=== PATIENT | female | born 1945 | race Caucasian/White ===

== ENCOUNTER 2024-08-18 09:53 | Emergency (ER) | payer MEDICARE, SELFPAY ==
[2024-08-18] VITALS (7 sets, daily range): BP systolic 150–174; BP diastolic 61–111
[2024-08-18 10:36] LABS: % Basophils 0.4 % (0-2); % Eosinophils 1.4 % (0-6); % Immature Granulocytes 0.3 % (0-0.5); % Lymphocytes 24.9 % (20.5-51.1); % Monocytes 5.7 % (1.7-9.3); % Neutrophils 67.3 % (42.2-75.2); Absolute Eosinophils 0.1 10^3/uL (0-0.7); Absolute Lymphocytes 2.5 10^3/uL (1.2-3.4); Absolute Monocytes 0.6 10^3/uL (0.1-0.6); Absolute Neutrophils 6.8 10^3/uL (1.4-6.5); Hematocrit 36.4 % (37.0-47.0); Hemoglobin 12.4 g/dL (12.0-16.0); Mean Corp Hgb Conc. 34.1 g/dL (33.0-37.0); Mean Corpuscular Hgb 30.8 pg (27.0-31.0); Mean Corpuscular Volume 90.5 fL (81.0-99.0); Mean Platelet Volume 9.9 fL (7.4-10.4); Nucleated Red Blood Cells % 0 %; Platelet Count 296 10^3/uL (130-400); Red Blood Cell Count 4.02 10^6/uL (4.20-5.40); Red Cell Dist. Width 13.1 % (11.5-14.5); White Blood Cell Count 10.1 10^3/uL (4.8-10.8)
[2024-08-18 10:38] LABS: Urine Albumin Trace (Neg - Trace); Urine Bilirubin Negative (Negative); Urine Character Very Cloudy (Clear); Urine Color Yellow; Urine Glucose Negative (Negative); Urine Ketone Negative (Negative); Urine Leukocyte 2+ (Negative); Urine Nitrite Negative (Negative); Urine Occult Blood Trace (Negative); Urine Specific Gravity 1.015 (<1.030); Urine Urobilinogen Negative (Neg - 1+)
[2024-08-18 10:47] LABS: ALT (SGPT) 15 U/L (0-35); AST (SGOT) 22 U/L (14-36); Albumin 4.2 g/dl (3.5-5.0); Alkaline Phosphatase 77 U/L (38-126); Blood Urea Nitrogen 18 mg/dl (7-17); Calcium 9.3 mg/dl (8.4-10.2); Carbon Dioxide 24 mmol/L (22-30); Chloride 105 mmol/L (98-107); Glucose 90 mg/dl (70-99); Lipase 60 U/L (23-300); Potassium 4.9 mmol/L (3.5-5.1); Sodium 138 mmol/L (135-145); Total Bilirubin 0.4 mg/dl (0.2-1.3); Total Protein 6.7 g/dl (6.3-8.2); eGFR 51.75
[2024-08-18 11:12] LABS: Urine Squamous Cell >30 /LPF (Few)
[2024-08-18 11:15] LABS: Urine Amorphous Seen; Urine Bacteria Many (Negative); Urine Red Blood Cell 0-2 /HPF (0-2); Urine White Cell 40-50 /HPF (0-5)
[2024-08-18 12:48] LABS: Glucose - Point of Care 64 mg/dl (70-99)
[2024-08-18] MEDS: D5/0.45%NACL 500 IV (13:07)
--- NOTE | 2024-08-18 13:11 | ED.GENMED ---
History of Present Illness
General
Chief Complaint: Abdominal Pain
Source: patient
Exam Limitations: none
Time Seen by Provider: 08/18/24 12:16
Nursing documentation reviewed up to this point in time: agreed with
History of Present Illness
History of Present Illness:
79-year-old female with a past medical history of hypertension, hyperlipidemia, diabetes who presents to the emergency department for evaluation of abdominal/back pain. Patient reports initially symptoms started about 10 to 12 days ago and they
have been constant although intensity waxing and waning since then. She reports pain in the right flank/low back. She says that over the past day or 2 symptoms have migrated she now has pain in the right lower abdomen as well. She denies any
nausea, vomiting, constipation, diarrhea. She denies any numbness or weakness in the legs, bowel or bladder incontinence, saddle anesthesia. She has not had any dysuria, hematuria, change in frequency. She has not had any fevers or chills. She
has not had any similar symptoms in the past. She denies any falls or trauma.
Review of Systems
Review of Systems
All Other Systems: ROS reviewed and negative except as documented in HPI and ROS
Constitutional: Denies fever or chills
Respiratory: Denies trouble breathing
Cardiac: Denies chest pain
ABD/GI: Reports abdominal pain; Denies nausea, vomiting, diarrhea or constipated
: Reports flank pain; Denies dysuria, frequency or bleeding
Musculoskeletal: Reports back pain; Denies neck pain
Neurological: Denies dizzy, headache, weakness or numbness
Phy Exam
Physical Exam
Physical Exam:
General: Awake, alert, oriented x3; no acute distress
Head: Normocephalic, atraumatic
Eyes: Conjunctiva normal, sclera anicteric
Throat: Airway intact, handling secretions
Neck: Trachea midline
Lungs: Clear to auscultation bilaterally, no wheezing, rales, rhonchi
Heart: Regular rate and rhythm, no murmurs, gallops, or rubs appreciated
Abd: Soft, non distended, mildly tender right upper and lower abdomen with no peritoneal signs or masses appreciated
Back: Mildly tender upper lumbar right paraspinal region; no CVA tenderness; negative straight leg raise bilaterally
Neuro: Cranial nerves grossly intact, speech fluid, motor and sensory intact lower extremities
Skin: no rash
Extremities: Warm and well-perfused
Scores
Heart Failure Risk
Heart Failure Risk Score: Not Applicable
Heart Score for Chest Pain Patients
STEMI patient?: Not applicable
Withdrawal Assessment of Alcohol
Withdrawal Assessment Completed?: Not applicable
Course
Orders/Labs/Results
Orders:
Orders
08/18/24 10:25
Complete Blood Count/With Diff Urgent
Comprehensive Metabolic Panel Urgent
Lipase Urgent
Urinalysis Reflex To Culture Urgent
Date Specimen was Collected: 08/18/24
Time Specimen was Collected: 10:04
Urine Microscopic Reflex Cult Urgent
Urine Culture Urgent
NIMISHA Source: U
Specimen Description:
Date Specimen was Collected: 08/18/24
Time Specimen was Collected: 10:04
08/18/24 12:19
CT Abd/pelvis W Iv Cont Urgent
Comment:
Reason For Exam: right flank/abd pain
08/18/24 12:43
Bedside Glucose- Treatment ONCE
08/18/24 13:00
Dextrose 5%/0.45%Sodchl 500 ml [D5/0.45%NaCl] 500 ml IV 40 mls/hr
08/18/24 15:51
Amoxicillin 875 mg/Clav 125 mg [Augmentin 875 mg/125 mg] 1 tablet PO NOW STA
08/18/24 15:58
Ketorolac [Toradol] 15 mg IV NOW STA
Oxycodone [Roxicodone] 5 mg PO NOW STA
Abnormal Lab Results
08/18/24 08/18/24
10:25 12:47
RBC 4.02 L 10^6/uL
(4.20-5.40)
Hct 36.4 L %
(37.0-47.0)
Absolute Neuts (auto) 6.8 H 10^3/uL
(1.4-6.5)
BUN 18 H mg/dl
(7-17)
Creatinine 1.1 H mg/dL
(0.6-1.0)
Ur Occult Blood Reflex Trace A
(Negative)
Leukocyte Esterase Rfl 2+ A
(Negative)
Urine WBC (Reflex) 40-50 A /HPF
(0-5)
Urine Bacteria (Reflex) Many A
(Negative)
POC Glucose 64 L mg/dl
(70-99)
08/18/24 10:25
08/18/24 10:25
Vital Signs
Initial and Last Documented VS:
Initial Vital Signs
Temp Pulse Resp BP Pulse Ox
36.4 C 82 16 157/76 98
08/18/24 09:58 08/18/24 09:58 08/18/24 09:58 08/18/24 09:58 08/18/24 09:58
Last Documented Vital Signs
Temp Pulse Resp BP Pulse Ox
36.4 C 87 16 152/74 97
08/18/24 09:58 08/18/24 15:58 08/18/24 15:58 08/18/24 15:58 08/18/24 15:58
MDM/Problems Addressed
Differential Diagnosis Includes:
Musculoskeletal back pain, nephrolithiasis, UTI, cholelithiasis/cholecystitis, appendicitis
MDM/Problems Addressed:
79-year-old female presents for evaluation of right low back/flank pain now migrating to the right lower quadrant. Denies any trauma or injury. Vitals and exam as above. Will send off labs including a CBC and a CMP, urinalysis. Will check CT
abdomen pelvis. Offered pain control�patient declined. Monitor closely reassess after the above.
Labs reviewed: CBC unremarkable, CMP shows very mild THERESA with a creatinine of 1.1. Urinalysis cloudy with bacteria and pyuria although there are also many squamous cells suggesting degree of contamination. Patient notes on reassessment that her
sugar is feeling low�she says she had insulin this morning but did not take any food because of her ER visit. Will hold n.p.o. pending CT. Started on dextrose containing fluids. Monitor Accu-Cheks closely.
CT shows no acute pathology to account for symptoms started there was some edema in the right flank suggesting possible contusion. No bruising or cellulitis on exam. My suspicion is this is musculoskeletal back pain at this point in time�there is
no kidney stone, appendix normal, no other acute infection noted she is already status post cholecystectomy. Her urinalysis was abnormal and we will cover with antibiotics but very low suspicion that she has an acute pyelonephritis without fever or
urinary symptoms and with positional back pain. Patient feels comfortable discharge at this point. Will treat pain. Follow-up with PCP. We spoke about return precautions all questions answered.
Chronic conditions affecting care:
Diabetes
Acute Exacerbation and/or Progression of Chronic Illness:
Acute hypoglycemia in the setting of diabetes�treated with dextrose containing fluids
*Radiology
Radiology exam reviewed: radiology read reviewed
*Pulse Oximetry
Patient hypoxic: no
*Critical Care Note
Total Time (30-74mins, 75-104mins- exclusive of procedures): Not Applicable
Data Reviewed
Source: patient and family
ED Attending Note
-
Portions of this chart may have been created with voice recognition software.� Occasional wrong word or��sound alike� substitutions may have occurred due to the inherent limitations of voice recognition software.
Discharge Plan
Departure
Patient Disposition: Home (Routine Discharge)
Date of Disposition: 08/18/24
Time of Disposition: 15:52
Patient with high blood pressure during this ER visit?: Yes
Discharge Problem:
Back pain
Instructions: Back Pain
Prescriptions:
New
amoxicillin-pot clavulanate 875-125 mg tablet
1 tab PO BID Qty: 14 0RF
oxycodone 5 mg tablet
5 mg PO BID PRN (Reason: Pain) Qty: 7 0RF
Referrals:
Birdie Masters MD [Family Provider] - Follow up in 2-3 days
Activity Restrictions/Additional Instructions:
Thank you for visiting the Emergency Department at [facility].
1. Please schedule a follow up appointment as directed. Call first thing tomorrow morning to make an appointment.
2. If indicated, please take your medications as instructed and indicated on discharge paperwork.
3. If any of your symptoms do not improve, or persist, or become more severe within 6-12 hours, please return to the emergency department for further care.
4. Please return to the emergency department if you develop a headache, neck pain/stiffness, fever greater than 100.4F, chest pain, shortness of breath, persistent nausea, vomiting, slurred speech, difficulty walking, numbness/tingling, weakness,
signs of infection or any other symptoms that are worrisome to you.
Please call [phone] if you have any questions.
Interventions
Interventions:
*Risk Screen - Suicide Last Done: 08/18/24 09:58
*General Assessment Last Done: 08/18/24 09:58
*Neglect/Abuse Screening Last Done: 08/18/24 11:25
*ED COVID-19 Vaccine History Last Done: 08/18/24 09:58
PE-Vgiysj-Jpeivmqvpo Assessment Last Done: 08/18/24 11:25
Discharge Date and Time
Print Language: [id number]
[2024-08-18] MEDS: AUGMENTIN 875 MG/125 MG 1 TABLET PO (15:55)
[2024-08-18 16:00] LABS: Glucose - Point of Care 74 mg/dl (70-99)
[2024-08-18] MEDS: ROXICODONE 5 MG PO (16:01)
[2024-08-18] MEDS: TORADOL 15 MG IV (16:01)
== END 2024-08-18 16:10 | disposition home or self-care (01) ==
LOC: EMR 09:53
PROVIDERS: Emergency Medicine; EMERGENCY PHYSICIAN Emergency Medicine; FAMILY PHYSICIAN Family Medicine
DX: M54.9 Dorsalgia, unspecified (principal); I10 Essential (primary) hypertension; E78.5 Hyperlipidemia, unspecified; E11.9 Type 2 diabetes mellitus without complications; Z90.49 Acquired absence of other specified parts of digestive tract
CPT/HCPCS: 99284; 74177; 80053; 81003; 81015; 82962; 83690; 85025; 87086; Q9967